=== PATIENT | male | born 1950 | race Caucasian/White ===

== ENCOUNTER → 2017-04-20 | Outpatient (CLI) | payer OTHER | END | disposition home or self-care (01) | LOC: C.PATHSPEC 17:32 | PROVIDERS: ATTEND Urology | DX: N40.1 Benign prostatic hyperplasia with lower urinary tract symptoms (principal); R32 Unspecified urinary incontinence; N39.0 Urinary tract infection, site not specified ==

== ENCOUNTER → 2017-06-07 | Outpatient (CLI) | payer OTHER ==
--- NOTE | 2017-06-07 07:44 | DIAGNOSTIC IMAGING REPORT ---
ABD/PELVIS NO IV OR ORAL CONT CT DOSE: 728.72 mGy.cm HISTORY: Pain. Infection. Hydronephrosis. N39.0 UTI (urinary tract infection)R32 [id number] Hydron TECHNIQUE: Multiaxial CT images of the abdomen and pelvis were performed without contrast. A dose lowering technique was utilized adhering to the principles of ALARA. COMPARISON STUDY: None. FINDINGS: Small right pleural effusion. Lung bases otherwise are clear. Multiple gallstones in a contracted gallbladder. Operative changes consistent with a prior gastroplasty. Kidneys are negative for calcification or hydronephrosis. The adrenal glands are unremarkable. The bowel pattern overall is nonobstructive. Mild nonobstructive ileus. There is a Miles catheter within a collapsed bladder. The appendix is normal. IMPRESSION: 1. Small right pleural effusion. 2. Multiple gallstones in a contracted gallbladder. 3. Prior gastroplasty. 4. Study is otherwise negative. 5.. Mild nonobstructive ileus. 6. Miles catheter within a collapsed bladder. The above report was generated using voice recognition software. It may contain grammatical, syntax or spelling errors. Electronically signed by: Mehul Mcadams M.D. 06/07/2017 7:42 AM Dictated Date/Time: 06/07/2017 7:36 AM
== END | disposition home or self-care (01) ==
LOC: C.CTS 07:04
PROVIDERS: ATTEND Urology
DX: N13.30 Unspecified hydronephrosis (principal); N39.0 Urinary tract infection, site not specified; R32 Unspecified urinary incontinence; J90 Pleural effusion, not elsewhere classified; K80.20 Calculus of gallbladder without cholecystitis without obstruction; K56.7 Ileus, unspecified

== ENCOUNTER → 2017-07-07 | Outpatient (CLI) | payer OTHER ==
[~2017-07-07] MED LIST: ASPI81TA28 PO; EZET10TA41 PO; FERR1TAB13 PO; FINA5TAB PO; LEVO125T72 PO; METO50TA16 PO; RANI150T3 PO; SACU1TAB PO; VITACAP26 PO; XRL10 PO; [UNRECOGNIZED DRUG - CODE] PO
== END | disposition home or self-care (01) ==
LOC: C.LABSPEC 17:15
PROVIDERS: ATTEND Nurse Practitioner Adult Health
DX: N39.0 Urinary tract infection, site not specified (principal)

== ENCOUNTER → 2017-07-27 | Outpatient (CLI) | payer OTHER | END | disposition home or self-care (01) | LOC: C.LABSPEC 17:14 | PROVIDERS: ATTEND Urology | DX: N40.1 Benign prostatic hyperplasia with lower urinary tract symptoms (principal) ==

== ENCOUNTER 2017-08-04 05:14 | Observation (INO) | payer OTHER ==
[2017-07-05 10:44] LABS: BASO % 0.4 %; BASO ABS # 0.03 K/uL (0-0.2); EOS % 2.2 %; EOS ABS # 0.19 K/uL (0-0.5); HEMOGLOBIN 13.6 g/dL (14.0-18.0); IG# 0.04 K/uL (0.00-0.02); LYMPH ABS # 1.96 K/uL (1.2-3.4); MEAN CELL VOLUME 91.9 fL (80-100); MEAN CORPUSCULAR HEMOGLOBIN 30.5 pg (25-34); MEAN CORPUSCULAR HGB CONC 33.2 g/dl (32-36); MEAN PLATELET VOLUME 9.5 fL (7.4-10.4); MONO % 9.9 %; MONO ABS # 0.84 K/uL (0.11-0.59); NEUT ABS # 5.45 K/uL (1.4-6.5); PLATELET COUNT 213 K/uL (130-400); RED CELL DISTRIBUTION WIDTH CV 16.2 % (11.5-14.5); RED CELL DISTRIBUTION WIDTH SD 54.8 fL (36.4-46.3); WHITE BLOOD COUNT 8.51 K/uL (4.8-10.8)
--- NOTE | 2017-07-05 10:49 | PAT Medication Instructions ---
Service Date Jul 05, 2017. Current Home Medication List Aspirin (Aspirin Ec), 81 MG PO QAM Ezetimibe/Simvastatin (Vytorin 10MG/40MG), 1 TAB PO QPM Ferrous Sulfate (Kp Ferrous Sulfate), 1 TAB PO QAM Finasteride (Proscar), 5 MG PO QAM Levothyroxine Sodium (Synthroid), 125 MCG PO QAM Metoprolol Tartrate (Lopressor) (Lopressor), 25 MG PO BID Mexiletine HCl (Mexiletine HCl), 1 CAP PO QAM Ranitidine Hcl (Zantac), 150 MG PO QAM Rivaroxaban (Xarelto), 1 TAB PO QAM Sacubitril-Valsartan (Entresto 24-26 mg), 1 TAB PO HS Vitamins C & E (Vitamin C), 1 CAP PO QAM Medication Instructions For Your Scheduled Surgery -Check with your quality improvement specialist for instructions for: Aspirin (Aspirin Ec), 81 MG PO QAM Rivaroxaban (Xarelto), 1 TAB PO QAM - Hold the following medications the morning of surgery: Ferrous Sulfate (Kp Ferrous Sulfate), 1 TAB PO QAM Finasteride (Proscar), 5 MG PO QAM Vitamins C (Vitamin C), 1 CAP PO QAM - Take the following medications the morning of surgery with a sip of water: Levothyroxine Sodium (Synthroid), 125 MCG PO QAM Metoprolol Tartrate (Lopressor) (Lopressor), 25 MG PO BID Mexiletine HCl (Mexiletine HCl), 1 CAP PO QAM Ranitidine Hcl (Zantac), 150 MG PO QAM - Take the following medications as scheduled the night before surgery: Ezetimibe/Simvastatin (Vytorin 10MG/40MG), 1 TAB PO QPM Metoprolol Tartrate (Lopressor) (Lopressor), 25 MG PO BID Sacubitril-Valsartan (Entresto 24-26 mg), 1 TAB PO HS If you have any questions please call us at [phone] or [phone] or [phone]
[2017-07-05 12:42] LABS: CALCIUM 8.6 mg/dl (8.5-10.1); CREATININE 1.24 mg/dl (0.60-1.40); POTASSIUM 3.6 mmol/L (3.5-5.1)
[~2017-08-04] VITALS: Ht 177.8 cm; Wt 101.3 kg
[2017-08-04 05:52] VITALS: BP 132/84; PULSE 63; TEMP 36.6; O2SAT 98
[2017-08-04] MEDS ORDERED: CEFAZOLIN 2000MG IV PUSH 15 ML IV SCH (06:00)
[2017-08-04] MEDS ORDERED: LACTATED RINGER'S 1000ML 1,000 ML IV SCH (06:00)
--- NOTE | 2017-08-04 06:55 | History & Physical Bridge Note ---
H&P Re-Evaluation Bridge Note: I have examined the patient, reviewed the History & Physical and in the interval since the performance of the History & Physical I have noted the following changes of clinical significance: No changes noted
[2017-08-04] MEDS ORDERED: ONDANSETRON INJ 2 MG/ML 2 ML VIAL ONE (07:00)
[2017-08-04] MEDS ORDERED: DEXAMETHASONE SOD INJ 4 MG/ML VIAL ONE (07:00)
[2017-08-04] MEDS ORDERED: MIDAZOLAM HCL 1 MG/ML 2ML VIAL ONE ×2 (07:00→09:39)
[2017-08-04] MEDS ORDERED: PROPOFOL IV EMULSION 10 MG/ML 20 ML VIAL ONE ×2 (07:00→09:40)
[2017-08-04] MEDS ORDERED: FENTANYL CITRATE INJ 50 MCG/1 ML 2 ML VIAL ONE ×2 (07:00→10:36)
[2017-08-04] MEDS ORDERED: LIDOCAINE HCL 2% 2 ML VIAL (20MG/ML) ONE (07:00)
--- NOTE | 2017-08-04 07:03 | History and Physical ---
History & Physical Date August 04, 2017. Chief Complaint Retention, hematuria History of Present Illness The patient is a 66 year old male with complaints of severe retention and multiple drug resistent UTI with severe enlargement. Tolerating catheter but with pain and bleeding. Severe and bothersome. Past Medical/Surgical History CAH, CAD, HTN Additional History Hepatic Disease: No Endocrine Disorder: No Kidney Disease: No Hypertension: Yes Heart Disease: Yes Bleeding Tendencies: No Infectious Diseases: Yes Allergies Coded Allergies: Tamsulosin (Verified Allergy, Unknown, SYNCOPE, 08/04/17) Codeine (Verified Adverse Reaction, Unknown, NAUSEA AND VOMITING, 08/04/17) Home Medications Scheduled Aspirin (Aspirin Ec), 81 MG PO QAM Ezetimibe/Simvastatin (Vytorin 10MG/40MG), 1 TAB PO QPM Ferrous Sulfate (Kp Ferrous Sulfate), 1 TAB PO QAM Finasteride (Proscar), 5 MG PO QAM Levothyroxine Sodium (Synthroid), 125 MCG PO QAM Metoprolol Tartrate (Lopressor) (Lopressor), 25 MG PO BID Mexiletine HCl (Mexiletine HCl), 1 CAP PO QAM Ranitidine Hcl (Zantac), 150 MG PO QAM Rivaroxaban (Xarelto), 1 TAB PO QAM Sacubitril-Valsartan (Entresto 24-26 mg), 1 TAB PO HS Vitamins C & E (Vitamin C), 1 CAP PO QAM Physical Examination Skin: warm/dry, no rash Eyes: normal inspection ENT: normal ENT inspection Head: normocephalic, atraumatic Neck: supple, no adenopathy Respiratory/Chest: no respiratory distress Cardiovascular: regular rate, rhythm Abdomen / GI: non tender Back: normal inspection Extremities: normal inspection, normal range of motion Genitourinary - Male: normal male genitalia, normal phallus, + pertinent finding (Miles) Neurologic/Psych: no motor/sensory deficits, alert, normal reflexes, oriented x 3 Diagnosis 1. BPH with obstruction 2. Retention. 3. Hematuria 4. Bladder lesions 5. CAD and CHF with pacemaker 6. Multiple UTI and funguria ASA Classification: ASA Class III Plan of Treatment Plan to proceed with PVP and possible resection vs biopsy of bladder lesion. Will admit for observation post op and continue on CBI. Will follow closely. Plan to preoperative antibiotic with multiple agents.
[2017-08-04] MEDS ORDERED: NURSING VERBAL MED ORDER ONE (07:15)
[2017-08-04] MEDS ORDERED: PIPERACILL/TAZOBAC CONSULT ACTIVE PRN (07:15)
[2017-08-04] MEDS ORDERED: ONDANSETRON INJ 2 MG/ML 2 ML VIAL IV PRN ×2 (07:30→08:00)
[2017-08-04] MEDS ORDERED: PHENAZOPYRIDINE HCL 200 MG TAB PO PRN (07:30)
[2017-08-04] MEDS ORDERED: CASPOFUNGIN INJ 70 MG in SODIUM CHLORIDE 0.9% 250ML 250 ML IV SCH (07:30)
[2017-08-04] MEDS ORDERED: PIPERACILL/TAZOBAC IV 3.375 GM in DEXTROSE 5% 100ML 100 ML IV SCH (07:30)
[2017-08-04] MEDS ORDERED: MoRPHine SULFATE 4 MG/ML 1 ML CARP\\VIAL IV PRN ×2 (07:30)
[2017-08-04] MEDS ORDERED: EpHEDrine SULFATE INJ 50 MG/ML AMP ONE ×3 (07:33→11:40)
[2017-08-04] MEDS ORDERED: IV FLUIDS COMPLETED PRN (08:00)
[2017-08-04] MEDS ORDERED: FLUMAZENIL 0.1 MG/1 ML 10 ML VIAL IV PRN (08:00)
[2017-08-04] MEDS ORDERED: NALOXONE HCL 0.4 MG/1 ML VIAL/CARP IV PRN (08:00)
[2017-08-04] MEDS ORDERED: FENTANYL CITRATE INJ 50 MCG/1 ML 2 ML VIAL IV PRN (08:00)
[2017-08-04] MEDS ORDERED: ATROPINE SULFATE 0.1 MG/ML 5ML SYR IV PRN (08:00)
[2017-08-04] MEDS ORDERED: EpHEDrine SULFATE INJ 50 MG/ML AMP IV PRN (08:00)
[2017-08-04] MEDS ORDERED: PHENYLEPHRINE 100MCG/ML 5ML SYR IV PRN (08:00)
[2017-08-04] MEDS ORDERED: LABETALOL HCL IV 5 MG/ML 20ML IV PRN (08:00)
[2017-08-04] MEDS ORDERED: MEPERIDINE HCL 25 MG/ML CARP IV PRN (08:00)
[2017-08-04] MEDS ORDERED: BELLADONNA/OPIUM SUPP 60 MG SUPP PR SCH (08:00)
[2017-08-04] MEDS ORDERED: EpHEDrine SULFATE 50MG/5ML SYR ONE (08:42)
[2017-08-04] MEDS ORDERED: SODIUM CHLORIDE 0.9% INJ 10 ML VIAL ONE ×2 (08:42→09:49)
[2017-08-04] MEDS ORDERED: PHENYLEPHRINE 100MCG/ML 5ML SYR ONE (10:23)
[2017-08-04] MEDS ORDERED: PHENYLEPHRINE HCL INJ 10 MG/ML VIAL ONE (11:37)
[2017-08-04] MEDS ORDERED: BELLADONNA/OPIUM SUPP 60 MG SUPP PR ONE (11:45)
--- NOTE | 2017-08-04 11:59 | [facility] Post Operative Brief Note ---
Immediate Operative Summary Operative Date August 04, 2017. Pre-Operative Diagnosis -Benign Prostatic Hyperplasia with Urinary retention -Hematuria Post-Operative Diagnosis -Benign Prostatic Hyperplasia with Urinary retention -Hematuria Procedure(s) Performed Photo Vaporization Prostate Greenlight Laser, Bladder Biopsies and Fulguration, Transurethral Resection Bladder Tumor, Cystoscopy, Transurethral Resection of Prostate Surgeon Dr. Jered Landeros Data Systems Manager Surgeon(s) None Estimated Blood Loss 50mL Findings Consistent with Post-Op Diagnosis Specimens Permanent specimens A: Prostate Chips B. Bladder tumor Anesthesia Type General Complication(s) none Disposition Disposition: Recovery Room / PACU Overlapping Procedure I was present for: the critical portions of procedure. I was immediately available: during the entire case Back up surgeon: was not required during procedure
--- NOTE | 2017-08-04 12:21 | [facility] Operative Report ---
Operative Report Operative Date August 04, 2017. Pre-Operative Diagnosis Urinary Retention, BPH with obstruction, Bladder Mass, Gross Hematuria Post-Operative Diagnosis Same Procedure(s) Performed Photo Vaporization Prostate Greenlight Laser with enculation of prostate, Transurethral Resection Bladder Tumor, Large, Cystoscopy, and Transurethral Resection of Prostate Surgeon Landeros Estimated Blood Loss Minimal Findings Severe lateral enlargement. Dome papillary vs edematous lesions Specimens 1. Prostate Chips 2. Bladder lesions Drains [address] Anesthesia Type General Complication(s) none Disposition Recovery Room / PACU Indications Multiple UTI and Funguria with Retention and multiple failed attempts to remove catheter. Significant BPH with obstruction and retention. Risks and benefits discussed at length. Patient has been on multiple course of antibiotics for coverage. Description of Procedure Patient was consented and brought back to the operating room. Patient was placed under anesthesia in the supine position and moved to the dorsal lithotomy position. Patient was prepped and draped in the regular sterile fashion. A time out was completed. A 30degree Cystoscope was placed into the bladder and the entire bladder was examined. The UO's were identified. Multiple concerning suspicious areas of the bladder were noted at the dome. These had an edematous appearance and likely due to chronic irritation. The prostate was assessed. As previously noted, patient had severe lateral enlargement. The scope was removed and the laser bridge was selected. The PVP Green light laser was placed. The Prostate was assessed once again. Starting at the 5 o' clock and then 7 o'clock position a channel was created from the bladder neck to the veru. All important landmarks were assessed prior to vaporization. The channel was created. The tissues from 5 to 7 o'clock were then vaporized. It was apparent at this point that the patient's severe lateral enlargement was notably extreme. The left adenoma was enucleated by resected along the capsule from the 1 o'clock position down to the 5 o'clock. All bleeding was controlled. The adenoma was then displaced into the bladder. The bed was assessed and further photovaporization was completed at this section. The prostate had multiple prostatic stones which caused significant reflection. The laser fiber failed immediately after starting further vaporization. A second fiber was selected and vaporization was continued. Attention was then taken to the right lobe. Starting at 11 o'clock enucleation was commenced. The right lobe had a large stone component and the second fiber also ceased function. At this point, the bipolar resection scope was placed with the bipolar loop. Resection of the large right lobe commenced. This was resected to the capsule. All bleeding was controlled with cautery setting. More bleeding was appreciated on the right with the bipolar resection. The entire are was resected. The resection ran from veru to bladder neck and to the capsule bilaterally. A large amount of tissue was resected as well as vaporized. The large enculeated adenoma was identified in the bladder and this was resected to allow irrigation. With this completed, the 1 o'clock position was assessed and vaporization was taken of the lateral enlargement on the left. This vaporization was taken to the region of the capsule. After vaporizing the left lateral, the 11 o'clock position was assessed and vaporization was taken down the right lateral prostate. The debris created and all prostate adenoma chips were irrigated and the bladder was emptied. All bleeding was controlled. The entire bed was examined. Resection to the capsule was completed and all bleeding controlled. The tissue was sent for pathologic analysis. The bladder was then reassessed. The bipolar fine resection loop was selected. The lesions throughout the bladder were assessed. Resection of the lesions commenced. All bleeding was controlled with cautery. No other issues or concerning areas. The tissue was irrigated and sent for analysis. Approximately 6.3 cm of tumor was resected from the dome with the edges fulgurated. The bladder and prostate bed were assessed one final time. All bleeding was controlled. The bladder was left partially full and the scope removed. A 22 Fr 3-way catheter was then placed and set to irrigation. A B&O suppository was also placed into the rectum. The patient was cleaned, aroused from anesthesia, and transferred to the pacu in stable condition having tolerated the procedure well with no complications. I was present and participated in all aspects of the procedure. The patient will be monitored in the PACU until transferred. I attest to the content of the Intraoperative Record and any orders documented therein. Any exceptions are noted below.
--- NOTE | 2017-08-04 12:48 | Anesthesiology Progress Note ---
Anesthesia Post Op Note Date & Time August 04, 2017 at 12:48 Vital Signs Pain Intensity: 0 Vital Signs Past 12 Hours Date Time Temp Pulse Resp B/P (MAP) Pulse Ox O2 Delivery O2 Flow Rate FiO2 08/04/17 12:40 74 16 118/69 94 Oxymask 3 08/04/17 12:30 86 16 115/84 94 Oxymask 3 08/04/17 12:20 90 14 117/86 94 Oxymask 5 08/04/17 12:10 36.0 94 14 123/80 92 Oxymask 5 08/04/17 05:52 36.6 63 18 132/84 (100) 98 Room Air Notes Mental Status: alert / awake / arousable, participated in evaluation Pt Amnestic to Procedure: Yes Nausea / Vomiting: adequately controlled Pain: adequately controlled Airway Patency, RR, SpO2: stable & adequate BP & HR: stable & adequate Hydration State: stable & adequate Anesthetic Complications: no major complications apparent
[2017-08-04 14:38] VITALS: BP 111/72; PULSE 68; TEMP 36.7; O2SAT 95; Ht 177.8 cm; Wt 101.3 kg
[2017-08-04] MEDS: OXYCODONE/ACETAMINOPHEN 5-325 TAB PO PRN (14:41)
[2017-08-04] MEDS: SODIUM CHLORIDE 0.9% 1000ML 1,000 ML IV SCH (14:44)
[2017-08-04 15:19] LABS: BASO % 0.1 %; BASO ABS # 0.01 K/uL (0-0.2); EOS % 0.1 %; EOS ABS # 0.01 K/uL (0-0.5); HEMATOCRIT 37.9 % (42-52); HEMOGLOBIN 12.5 g/dL (14.0-18.0); IG# 0.03 K/uL (0.00-0.02); LYMPH % 3.9 %; LYMPH ABS # 0.39 K/uL (1.2-3.4); MEAN CELL VOLUME 92.7 fL (80-100); MEAN CORPUSCULAR HEMOGLOBIN 30.6 pg (25-34); MEAN PLATELET VOLUME 9.6 fL (7.4-10.4); MONO % 1.7 %; MONO ABS # 0.17 K/uL (0.11-0.59); NEUT % 93.9 %; NEUT ABS # 9.45 K/uL (1.4-6.5); PLATELET COUNT 196 K/uL (130-400); RED CELL DISTRIBUTION WIDTH CV 15.8 % (11.5-14.5); WHITE BLOOD COUNT 10.06 K/uL (4.8-10.8)
[2017-08-04 15:44] LABS: ALBUMIN 2.9 gm/dl (3.4-5.0); CALCIUM 7.8 mg/dl (8.5-10.1); CREATININE 1.26 mg/dl (0.60-1.40); POTASSIUM 4.5 mmol/L (3.5-5.1); TOTAL PROTEIN 6.3 gm/dl (6.4-8.2)
[2017-08-04 16:00] VITALS: O2SAT 95
[2017-08-04 16:09] VITALS: BP 107/68; PULSE 66; TEMP 36.5; O2SAT 92
[2017-08-04 19:51] VITALS: BP 90/57; PULSE 68; TEMP 36.4; O2SAT 93
[2017-08-04] MEDS: METOPROLOL TARTRATE 50 MG TAB PO SCH (20:47)
[2017-08-04] MEDS: DOCUSATE SODIUM 100 MG CAP PO SCH (20:47)
[2017-08-04] MEDS ORDERED: EZETIMIBE/SIMVASTATIN 10/40 TAB PO SCH (21:00)
[2017-08-04] MEDS ORDERED: SACUBITRIL-VALSARTAN 24-26 MG TAB PO SCH (21:00)
[2017-08-04 23:30] VITALS: BP 97/59; PULSE 72; TEMP 36.4; O2SAT 93
[2017-08-05] MEDS: SODIUM CHLORIDE 0.9% 1000ML 1,000 ML IV SCH ×2 (00:12→09:25)
[2017-08-05 03:33] VITALS: BP 98/60; PULSE 76; TEMP 36.4; O2SAT 93
[2017-08-05] MEDS ORDERED: CEFEPIME IV 2,000 MG in DEXTROSE 5% 100ML 100 ML IV ONE (06:00)
[2017-08-05] MEDS ORDERED: LEVOTHYROXINE 125 MCG TAB PO SCH (06:00)
[2017-08-05 06:33] LABS: BASO % 0.1 %; BASO ABS # 0.01 K/uL (0-0.2); HEMOGLOBIN 11.4 g/dL (14.0-18.0); IG# 0.03 K/uL (0.00-0.02); LYMPH % 6.5 %; LYMPH ABS # 0.69 K/uL (1.2-3.4); MEAN CELL VOLUME 92.6 fL (80-100); MEAN CORPUSCULAR HEMOGLOBIN 30.2 pg (25-34); MEAN CORPUSCULAR HGB CONC 32.6 g/dl (32-36); MEAN PLATELET VOLUME 9.4 fL (7.4-10.4); MONO % 7.1 %; MONO ABS # 0.76 K/uL (0.11-0.59); NEUT ABS # 9.17 K/uL (1.4-6.5); PLATELET COUNT 184 K/uL (130-400); RED CELL DISTRIBUTION WIDTH CV 16.1 % (11.5-14.5); RED CELL DISTRIBUTION WIDTH SD 54.8 fL (36.4-46.3); WHITE BLOOD COUNT 10.66 K/uL (4.8-10.8)
[2017-08-05 07:19] LABS: ALBUMIN 2.7 gm/dl (3.4-5.0); CREATININE 1.16 mg/dl (0.60-1.40); POTASSIUM 4.4 mmol/L (3.5-5.1); TOTAL PROTEIN 5.8 gm/dl (6.4-8.2)
[2017-08-05 07:20] VITALS: BP 96/60; PULSE 67; TEMP 36.3; O2SAT 93
--- NOTE | 2017-08-05 07:59 | Anesthesiology Progress Note ---
Anesthesia Post Op Note Date & Time August 05, 2017 at 07:59 Vital Signs Pain Intensity: 0.0 Vital Signs Past 12 Hours Date Time Temp Pulse Resp B/P (MAP) Pulse Ox O2 Delivery O2 Flow Rate FiO2 08/05/17 07:20 36.3 67 17 96/60 (72) 93 Room Air 08/05/17 04:00 Room Air 08/05/17 03:33 36.4 76 20 98/60 (73) 93 Room Air 08/05/17 00:00 Room Air 08/04/17 23:30 36.4 72 19 97/59 (72) 93 Room Air 08/04/17 20:00 Room Air Notes Mental Status: alert / awake / arousable, participated in evaluation Pt Amnestic to Procedure: Yes Nausea / Vomiting: adequately controlled Pain: adequately controlled Airway Patency, RR, SpO2: stable & adequate BP & HR: stable & adequate Hydration State: stable & adequate Anesthetic Complications: no major complications apparent
[2017-08-05] MEDS: DOCUSATE SODIUM 100 MG CAP PO SCH (08:04)
[2017-08-05] MEDS: METOPROLOL TARTRATE 50 MG TAB PO SCH (08:05)
[2017-08-05] MEDS ORDERED: RANITIDINE HCL 150 MG TAB PO SCH (09:00)
[2017-08-05] MEDS ORDERED: FERROUS SULFATE 325 MG TAB PO SCH (09:00)
[2017-08-05] MEDS ORDERED: FINASTERIDE 5 MG TAB PO SCH (09:00)
--- NOTE | 2017-08-05 10:10 | Progress Note ---
Subjective Date of Service: August 05, 2017. Subjective Pt evaluation today including: conversation w/ patient, chart review, lab review Voiding: torres catheter in place (patent, draining clear, yellow urine ) 66 yo male s/p TURP. Pt denies pain this morning. He reports some nausea earlier, but this has resolved. Denies vomiting. Noted to be hypotensive at 96/60, but feels well. Torres draining clear, yellow urine with CBI clamped. Review of Systems Constitutional: No fever, No chills Respiratory: No shortness of breath Cardiac: No chest pain Abdomen: No pain, No nausea, No vomiting Male : No hematuria Heme: No abnormal bleeding/bruising Objective Vital Signs Date Time Temp Pulse Resp B/P (MAP) Pulse Ox O2 Delivery O2 Flow Rate FiO2 08/05/17 07:20 36.3 67 17 96/60 (72) 93 Room Air 08/05/17 04:00 Room Air 08/05/17 03:33 36.4 76 20 98/60 (73) 93 Room Air 08/05/17 00:00 Room Air 08/04/17 23:30 36.4 72 19 97/59 (72) 93 Room Air 08/04/17 20:00 Room Air 08/04/17 19:51 36.4 68 18 90/57 (68) 93 Nasal Cannula 1.0 08/04/17 16:09 36.5 66 16 107/68 (81) 92 Nasal Cannula 2.0 08/04/17 16:00 95 Nasal Cannula 2.0 08/04/17 14:38 36.7 68 16 111/72 95 Nasal Cannula 2.0 08/04/17 14:00 63 18 118/71 94 Nasal Cannula 3 08/04/17 13:45 36.3 65 18 113/71 94 Nasal Cannula 3 08/04/17 13:30 66 18 112/72 94 Nasal Cannula 3 08/04/17 13:15 72 18 111/72 96 Nasal Cannula 3 08/04/17 13:00 69 18 117/73 93 Nasal Cannula 3 08/04/17 12:50 36.2 74 18 117/76 94 Nasal Cannula 3 08/04/17 12:40 74 16 118/69 94 Oxymask 3 08/04/17 12:30 86 16 115/84 94 Oxymask 3 08/04/17 12:20 90 14 117/86 94 Oxymask 5 08/04/17 12:10 36.0 94 14 123/80 92 Oxymask 5 Physical Exam General Appearance: no apparent distress Eyes: normal inspection ENT: hearing grossly normal Neck: no JVD Respiratory/Chest: no respiratory distress, no accessory muscle use Cardiovascular: no JVD Extremities: normal inspection Neurologic/Psychiatric: alert, normal mood/affect, oriented x 3 Skin: normal color Laboratory Results Last 24 Hours Test 08/04/17 14:51 08/04/17 14:57 08/05/17 05:50 White Blood Count 10.06 K/uL 10.66 K/uL Red Blood Count 4.09 M/uL 3.78 M/uL Hemoglobin 12.5 g/dL 11.4 g/dL Hematocrit 37.9 % 35.0 % Mean Corpuscular Volume 92.7 fL 92.6 fL Mean Corpuscular Hemoglobin 30.6 pg 30.2 pg Mean Corpuscular Hemoglobin Concent 33.0 g/dl 32.6 g/dl Platelet Count 196 K/uL 184 K/uL Mean Platelet Volume 9.6 fL 9.4 fL Neutrophils (%) (Auto) 93.9 % 86.0 % Lymphocytes (%) (Auto) 3.9 % 6.5 % Monocytes (%) (Auto) 1.7 % 7.1 % Eosinophils (%) (Auto) 0.1 % 0.0 % Basophils (%) (Auto) 0.1 % 0.1 % Neutrophils # (Auto) 9.45 K/uL 9.17 K/uL Lymphocytes # (Auto) 0.39 K/uL 0.69 K/uL Monocytes # (Auto) 0.17 K/uL 0.76 K/uL Eosinophils # (Auto) 0.01 K/uL 0.00 K/uL Basophils # (Auto) 0.01 K/uL 0.01 K/uL RDW Standard Deviation 54.0 fL 54.8 fL RDW Coefficient of Variation 15.8 % 16.1 % Immature Granulocyte % (Auto) 0.3 % 0.3 % Immature Granulocyte # (Auto) 0.03 K/uL 0.03 K/uL Sodium Level 141 mmol/L 141 mmol/L Potassium Level 4.5 mmol/L 4.4 mmol/L Chloride Level 112 mmol/L 111 mmol/L Carbon Dioxide Level 23 mmol/L 22 mmol/L Anion Gap 6.0 mmol/L 8.0 mmol/L Blood Urea Nitrogen 14 mg/dl 14 mg/dl Creatinine 1.26 mg/dl 1.16 mg/dl Est Creatinine Clear Calc Drug Dose 66.9 ml/min 72.7 ml/min Estimated GFR () 67.5 74.6 Estimated GFR (Non- 58.2 64.3 BUN/Creatinine Ratio 11.3 11.9 Random Glucose 141 mg/dl 115 mg/dl Calcium Level 7.8 mg/dl 8.0 mg/dl Total Bilirubin 0.6 mg/dl 0.7 mg/dl Aspartate Amino Transf (AST/SGOT) 32 U/L 28 U/L Alanine Aminotransferase (ALT/SGPT) 31 U/L 27 U/L Alkaline Phosphatase 66 U/L 57 U/L Total Protein 6.3 gm/dl 5.8 gm/dl Albumin 2.9 gm/dl 2.7 gm/dl Globulin 3.4 gm/dl 3.1 gm/dl Albumin/Globulin Ratio 0.9 0.9 Hepatitis C Antibody Screen NEG Assessment and Plan POD #1 s/p TURP. Labs stable. Advance diet for lunch. Encourage ambulation to hallway. Encourage use of IS. Will resume Xarelto this morning. Possible d/c home after lunch with if tolerating PO and ambulating without difficulty. Discharge planning: home
[2017-08-05] MEDS ORDERED: CIPR1TAB10 PO (10:14)
[2017-08-05] MEDS ORDERED: CLC100 PO (10:14)
[2017-08-05] MEDS ORDERED: OXYC-57 PO ×3 (10:14→10:26)
[2017-08-05] MEDS ORDERED: FLUC100T PO (10:14)
--- NOTE | 2017-08-05 10:19 | Discharge Instructions ---
Discharge Instructions Date of Service August 05, 2017. Admission Reason for Admission: Benign Prostatic Hyperplasia W/Urinary Obstruction Discharge Discharge Diagnosis / Problem: Benign Prostatic Hyperplasia with urinary obstruction Discharge Goals Goal(s): Decrease discomfort, Improve disease control, Therapeutic intervention Activity Recommendations Activity Limitations: as noted below Lifting Limitations: no more than 25 pounds (x 4 weeks ) Exercise/Sports Limitations: until after follow-up appointment (light activity until cleared by Dr. Landeros. No riding lawn mowers. ) May Resume Sexual Activity: after follow-up appointment Shower/Bathe: tomorrow (OK to shower, but no tub baths until torres catheter removed ) Driving or Machine Use: resume 3 days after discharge (Do not drive while taking narcotics. ) . Instructions / Follow-Up Instructions / Follow-Up 1. Finish all of the Cipro and Diflucan you have been prescribed. You may resume taking Vytorin 3 days after finishing Diflucan. 2. Discontinue Xarelto if significant bleeding noted in urine develops. 3. Follow-up with Dr. Landeros as scheduled. Please call our office at if you need to reschedule for any reason. Current Hospital Diet Patient's current hospital diet: AHA Diet (Heart Healthy) Discharge Diet Recommended Diet: AHA Diet (Heart Healthy) Procedures Procedures Performed: Photo Vaporization Prostate Greenlight Laser with enculation of prostate, Transurethral Resection Bladder Tumor, Large, Cystoscopy, and Transurethral Resection of Prostate Pending Studies Studies pending at discharge: yes List of pending studies: prostate tissue Medical Emergencies . Who to Call and When: Medical Emergencies: If at any time you feel your situation is an emergency, please call 911 immediately. . Non-Emergent Contact Non-Emergency issues call your: Urologist Call Non-Emergent contact if: temperature is above 101.5, your pain is not controlled, your pain is worsening, your pain is unusual for you, your pain is concerning you, you have any medication questions . . "Provider Documentation" section prepared by Kassy Pickering. . [place] Drug Monitoring Program Search Results: patient reviewed within database, no issues identified
[2017-08-05 10:55] VITALS: BP 121/77; PULSE 68; TEMP 36.4; O2SAT 99
[2017-08-05] MEDS: OXYCODONE/ACETAMINOPHEN 5-325 TAB PO PRN (12:41)
[2017-08-05 13:47] VITALS: BP 121/77; PULSE 68; TEMP 36.4; O2SAT 99
[2017-08-05] MEDS ORDERED: RIVAROXABAN 10 MG TAB PO SCH (16:45)
== END 2017-08-05 14:50 | disposition home or self-care (01) ==
LOC: C.ACU 05:14 → C.2T 07:23 → ENRESERV 13:24
PROVIDERS: ADMIT Urology; ATTEND Urology
DX: N40.1 Benign prostatic hyperplasia with lower urinary tract symptoms (principal); N13.9 Obstructive and reflux uropathy, unspecified; I11.9 Hypertensive heart disease without heart failure; I48.91 Unspecified atrial fibrillation; E78.00 Pure hypercholesterolemia, unspecified; I25.2 Old myocardial infarction; Z88.5 Allergy status to narcotic agent; Z95.1 Presence of aortocoronary bypass graft; Z98.61 Coronary angioplasty status; Z95.810 Presence of automatic (implantable) cardiac defibrillator